=== PATIENT | male | born 1980 | race Caucasian/White ===

== ENCOUNTER 2016-06-05 23:54 | Emergency (ER) | payer SELFPAY ==
[~2016-06-05] VITALS: Ht 172.7 cm; Wt 105.0 kg
[2016-06-05 23:57] VITALS: Ht 172.7 cm; Wt 105.0 kg
[2016-06-06] MEDS ORDERED: KETOROLAC 60 MG INJ IM STA (01:29)
[2016-06-06] MEDS ORDERED: CYCL-319 PO (01:39)
[2016-06-06] MEDS ORDERED: IBUP-1542 PO (01:39)
[2016-06-06] MEDS ORDERED: HYDR-902 PO (01:39)
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
[2016-06-06 02:08] VITALS: BP 150/76; PULSE 100; RESP 18; TEMP 97.3
== END 2016-06-06 02:00 | disposition home or self-care (01) ==
LOC: FTE 23:54
DX: S16.1XXA Strain of muscle, fascia and tendon at neck level, initial encounter (principal); F17.210 Nicotine dependence, cigarettes, uncomplicated; V49.40XA Driver injured in collision with unspecified motor vehicles in traffic accident, initial encounter
CPT/HCPCS: 99284; J1885